=== PATIENT | male | born 1965 | race Caucasian/White ===

== ENCOUNTER 2017-02-27 08:19 | Emergency (ER) | payer BC ==
[2017-02-27] MEDS ORDERED: Sodium Chloride 0.9% 10 ML Syringe FLUSH PRN (08:49)
[2017-02-27] MEDS ORDERED: Sodium Chloride 0.9% 2.5 ML Syringe FLUSH PRN (08:49)
[2017-02-27] MEDS ORDERED: Sodium Chloride 0.9% 1,000 ML IV ONE (08:49)
--- NOTE | 2017-02-27 08:54 | EDM.PDOC ---
ED HPI NEURO - General Chief Complaint: Neurological Problem Stated Complaint: VERTIGO Time Seen by Provider: 02/27/17 08:32 Source of Information: Reports: Patient History Limitations: Reports: No limitations - History of Present Illness INITIAL COMMENTS - FREE TEXT/NARRATIVE: HISTORY AND PHYSICAL: History of present illness: [51-year-old male with a history of tonic vertigo which has been extensively worked of with more than one MRI, carotid ultrasound, echocardiogram, ENT visit , now presents to the emergency department by an episode of dizziness typical for him. She does take meclizine at home with subtotal relief today. Room is spinning and patient does have nausea and sometimes vomits . He is no change in vision speech strength sensation reflexes or cognitive function. Fevers chills sweats or shaking chills. The symptoms are identical to what the patient has been experiencing for years Review of systems: As per history of present illness and below otherwise all systems reviewed and negative. Past medical history: As per history of present illness and as reviewed below otherwise noncontributory. Surgical history: As per history of present illness and as reviewed below otherwise noncontributory. Social history: No reported history of drug or alcohol abuse. Family history: As per history of present illness and as reviewed below otherwise noncontributory. Physical exam: Alert well-appearing patient mildly anxious. Nonfocal neurologic exam with reproducible dizziness with head movement which also precipitates nausea. HEENT: Atraumatic, normocephalic, pupils reactive, negative for conjunctival pallor or scleral icterus, mucous membranes moist, throat clear, neck supple, nontender, trachea midline. Lungs: Clear to auscultation, breath sounds equal bilaterally, chest nontender. Heart: S1S2, regular, negative for clicks, rubs, or JVD. Abdomen: Soft, nondistended, nontender. Negative for masses or hepatosplenomegaly. Negative for costovertebral tenderness. Pelvis: Stable nontender. Genitourinary: Deferred. Rectal: Deferred. Extremities: Atraumatic, negative for cords or calf pain. Neurovascular unremarkable. Neuro: Awake, alert, oriented. Cranial nerves II through XII unremarkable. Cerebellum unremarkable. Motor and sensory unremarkable throughout. Exam nonfocal. Diagnostics: [] Therapeutics: [] Impression: [] Plan: [Signs and symptoms consistent with straightforward presentation the patient's very well known and extensively worked up chronic vertigo. Emergency workup today unremarkable. Imaging of the head was not repeated as these are symptoms chronic and typical for the patient and he recently had a negative MRI. EKG with normal sinus rhythm at 70 normal axis and no STEMI. Chest x-ray chronic changes no acute disease interpreted by me and report reviewed. Labs unremarkable for contributory etiology after IV fluids and Ativan patient states he feels improved and that he could manage as an outpatient. No further workup or treatment indicated at this time. Patient agrees with outpatient followup and strict return precautions given.] Definitive disposition and diagnosis as appropriate pending reevaluation and review of above. - Related Data Allergies/ADRs: Allergies Allergy/AdvReac Type Severity Reaction Status Date / Time metformin Allergy Vomiting Verified 02/27/17 08:40 Home Meds: Home Meds ALPRAZolam [Xanax] 0.25 mg PO TID PRN #10 tablet 07/11/16 [Rx] Albuterol [Proventil HFA] 1 - 2 puff INH ASDIRECTED 07/11/16 [History] Glimepiride [Amaryl] 4 mg PO DAILY 07/11/16 [History] Insulin Glarg,Human.Rec.Analog [LantUS Solostar] 52 units SUBCUT BEDTIME [History] Lisinopril 10 mg PO DAILY 07/11/16 [History] Meclizine [Antivert] 50 mg PO Q6H PRN 07/11/16 [History] atorvaSTATin [Lipitor] 10 mg PO DAILY 07/11/16 [History] Insulin Regular, Human [NovoLIN R] 12 units SQ ASDIRECTED 02/27/17 [History] Ondansetron [Zofran ODT] 8 mg PO Q8H PRN 02/27/17 [History] Past Medical History - Past Health History Medical/Surgical History: Denies Medical/Surgical History Cardiovascular History: Reports: High cholesterol, Hypertension Respiratory History: Reports: COPD Other Respiratory History: a doctor informed him to see a doctor for copd , states was given an albuterol inhaler, but has not used it onlly a couple times in 6 months. Gastrointestinal History: Reports: GERD Neurological History: Reports: Vertigo Psychiatric History: Reports: Anxiety Endocrine/Metabolic History: Reports: Diabetes, type II - Infectious Disease History Infectious Disease History: Reports: Chicken pox - Past Surgical History GI Surgical History: Reports: Colonoscopy Other GI Surgeries/Procedures: polyp removed Other Male Surgeries/Procedures: vasectomy (1995) Other Musculoskeletal Surgeries/Procedures:: left hand surgery Social & Family History - Family History Family Medical History: Noncontributory - Tobacco Use Smoking Status *Q: Never Smoker Years of Tobacco use: 15 Packs/Tins Daily: 0.2 Used Tobacco, but Quit: Yes Month Tobacco Last Used: 1 year Second Hand Smoke Exposure: No - Caffeine Use Caffeine Use: Reports: None - Alcohol Use Days Per Week of Alcohol Use: 1 Number of Drinks Per Day: 0 Total Drinks Per Week: 0 - Recreational Drug Use Recreational Drug Use: No ED ROS GENERAL - Review of Systems Review Of Systems: See Below (History of present illness) ED EXAM, NEURO - Physical Exam Exam: See Below (History of present illness) Course - Vital Signs Last Recorded V/S: Last Vital Signs Temp 36.7 C 02/27/17 10:59 Pulse 95 02/27/17 10:59 Resp 16 02/27/17 10:59 BP 114/78 02/27/17 10:59 Pulse Ox 95 02/27/17 10:59 - Orders/Labs/Meds Orders: Active Orders 24 hr Category Date Time Status EKG Documentation Completion [RC] STAT Care 02/27/17 08:49 Active Peripheral IV Care [RC] . DIRECTED Care 02/27/17 08:49 Active Peripheral IV Insertion Adult [OM.PC] Stat Oth 02/27/17 08:49 Ordered Labs: Laboratory Tests 02/27/17 02/27/17 02/27/17 Range/Units 08:45 08:45 08:45 WBC 7.16 (4.0-11.0) K/uL RBC 4.91 (4.50-5.90) M/uL Hgb 15.7 (13.0-17.0) g/dL Hct 47.0 (38.0-50.0) % MCV 95.7 (80.0-98.0) fL MCH 32.0 (27.0-32.0) pg MCHC 33.4 (31.0-37.0) g/dL RDW Std Deviation 46.4 (28.0-62.0) fl RDW Coeff of Kimani 13 (11.0-15.0) % Plt Count 226 (150-400) K/uL MPV 10.30 (7.40-12.00) fL Neut % (Auto) 59.8 (48.0-80.0) % Lymph % (Auto) 23.6 (16.0-40.0) % [place] % (Auto) 13.3 (0.0-15.0) % Eos % (Auto) 1.5 (0.0-7.0) % Baso % (Auto) 1.8 H (0.0-1.5) % Neut # (Auto) 4.3 (1.4-5.7) K/uL Lymph # (Auto) 1.7 (0.6-2.4) K/uL [place] # (Auto) 1.0 H (0.0-0.8) K/uL Eos # (Auto) 0.1 (0.0-0.7) K/uL Baso # (Auto) 0.1 (0.0-0.1) K/uL Nucleated RBC % 0.0 /100WBC Nucleated RBCs # 0 K/uL Sodium 137 (136-146) mmol/L Potassium 4.2 (3.5-5.1) mmol/L Chloride 106 (98-110) mmol/L Carbon Dioxide 22 (21-31) mmol/L BUN 10 (6.0-23.0) mg/dL Creatinine 0.9 (0.6-1.5) mg/dL Est Cr Clr Drug Dosing 99.29 mL/min Estimated GFR (MDRD) > 60.0 ml/min Glucose 170 H (60-110) mg/dL Calcium 9.0 (8.8-10.8) mg/dL Total Bilirubin 0.5 (0.1-1.5) mg/dL AST 14 (5-40) IU/L ALT 27 (8-54) IU/L Alkaline Phosphatase 75 (40-150) Troponin I < 0.10 (0.0-0.29) NG/ML Total Protein 7.3 (6.0-8.0) g/dL Albumin 3.8 (3.5-5.0) g/dL Globulin 3.5 (2.0-3.5) g/dL Albumin/Globulin Ratio 1.1 L (1.3-2.8) Urine Color Urine Appearance Urine pH (5.0-8.0) Ur Specific [place] (1.001-1.035) Urine Protein (NEGATIVE) mg/dL Urine Glucose (UA) (NEGATIVE) mg/dL Urine Ketones (NEGATIVE) mg/dL Urine Occult Blood (NEGATIVE) Urine Nitrite (NEGATIVE) Urine Bilirubin (NEGATIVE) Urine Urobilinogen (<2.0) EU/dL Ur Leukocyte Esterase (NEGATIVE) Urine RBC (0-2/HPF) Urine WBC (0-5/HPF) Ur Epithelial Cells (NONE-FEW) Urine Bacteria (NEGATIVE) 02/27/17 Range/Units 09:45 WBC (4.0-11.0) K/uL RBC (4.50-5.90) M/uL Hgb (13.0-17.0) g/dL Hct (38.0-50.0) % MCV (80.0-98.0) fL MCH (27.0-32.0) pg MCHC (31.0-37.0) g/dL RDW Std Deviation (28.0-62.0) fl RDW Coeff of Kimani (11.0-15.0) % Plt Count (150-400) K/uL MPV (7.40-12.00) fL Neut % (Auto) (48.0-80.0) % Lymph % (Auto) (16.0-40.0) % [place] % (Auto) (0.0-15.0) % Eos % (Auto) (0.0-7.0) % Baso % (Auto) (0.0-1.5) % Neut # (Auto) (1.4-5.7) K/uL Lymph # (Auto) (0.6-2.4) K/uL [place] # (Auto) (0.0-0.8) K/uL Eos # (Auto) (0.0-0.7) K/uL Baso # (Auto) (0.0-0.1) K/uL Nucleated RBC % /100WBC Nucleated RBCs # K/uL Sodium (136-146) mmol/L Potassium (3.5-5.1) mmol/L Chloride (98-110) mmol/L Carbon Dioxide (21-31) mmol/L BUN (6.0-23.0) mg/dL Creatinine (0.6-1.5) mg/dL Est Cr Clr Drug Dosing mL/min Estimated GFR (MDRD) ml/min Glucose (60-110) mg/dL Calcium (8.8-10.8) mg/dL Total Bilirubin (0.1-1.5) mg/dL AST (5-40) IU/L ALT (8-54) IU/L Alkaline Phosphatase (40-150) Troponin I (0.0-0.29) NG/ML Total Protein (6.0-8.0) g/dL Albumin (3.5-5.0) g/dL Globulin (2.0-3.5) g/dL Albumin/Globulin Ratio (1.3-2.8) Urine Color YELLOW Urine Appearance CLEAR Urine pH 5.5 (5.0-8.0) Ur Specific [place] 1.010 (1.001-1.035) Urine Protein NEGATIVE (NEGATIVE) mg/dL Urine Glucose (UA) NEGATIVE (NEGATIVE) mg/dL Urine Ketones NEGATIVE (NEGATIVE) mg/dL Urine Occult Blood NEGATIVE (NEGATIVE) Urine Nitrite NEGATIVE (NEGATIVE) Urine Bilirubin NEGATIVE (NEGATIVE) Urine Urobilinogen 0.2 (<2.0) EU/dL Ur Leukocyte Esterase NEGATIVE (NEGATIVE) Urine RBC NONE SEEN (0-2/HPF) Urine WBC 0-1 (0-5/HPF) Ur Epithelial Cells RARE (NONE-FEW) Urine Bacteria RARE (NEGATIVE) Meds: Medications Discontinued Medications Generic Name Dose Route Start Last Admin Trade Name Freq PRN Reason Stop Dose Admin Sodium Chloride 1,000 mls @ 999 mls/hr 02/27/17 08:49 02/27/17 09:05 Normal Saline IV 02/27/17 09:49 999 mls/hr .Bolus ONE Administration Lorazepam 1 mg 02/27/17 09:10 02/27/17 09:25 Ativan IVPUSH 02/27/17 09:11 1 mg ONETIME ONE Administration Sodium Chloride 10 ml 02/27/17 08:49 02/27/17 09:07 Saline Flush FLUSH 10 ml ASDIRECTED PRN Administration Keep Vein Open Sodium Chloride 2.5 ml 02/27/17 08:49 02/27/17 09:07 Saline Flush FLUSH 2.5 ml ASDIRECTED PRN Administration Keep Vein Open Sodium Chloride 10 ml 02/27/17 08:49 02/27/17 09:07 Saline Flush FLUSH 10 ml ASDIRECTED PRN Administration Keep Vein Open Sodium Chloride 2.5 ml 02/27/17 08:49 02/27/17 09:08 Saline Flush FLUSH 2.5 ml ASDIRECTED PRN Administration Keep Vein Open Departure - Departure Time of Disposition: 10:27 Disposition: Home, Self-Care 01 Condition: good Clinical Impression: Vertigo, Anxiety Instructions: Vertigo, [id number], Panic Attacks, [id number] Referrals: Saskia Taveras CARDIOGRAPH OPERATOR [Primary Care Provider] - Forms: ED Department Discharge Additional Instructions: We have not found anything abnormal today which would contribute to your attacks of vertigo. It does appear that anxiety isn't contributory component is your DrJuan R has suspected and is treating with your recent medication change from Xanax to Valium. Use this anti-anxiety regimen as prescribed and followup with your DrJuan R tomorrow. Return immediately for new severe or worsening symptoms. - My Orders Last 24 Hours: My Active Orders 02/27/17 08:49 EKG Documentation Completion [RC] STAT Peripheral IV Care [RC] . DIRECTED Peripheral IV Insertion Adult [OM.PC] Stat - Assessment/Plan Last 24 Hours: My Active Orders 02/27/17 08:49 EKG Documentation Completion [RC] STAT Peripheral IV Care [RC] . DIRECTED Peripheral IV Insertion Adult [OM.PC] Stat
[2017-02-27] MEDS: Sodium Chloride 0.9% 10 ML Syringe FLUSH PRN ×2 (09:06→09:07)
[2017-02-27] MEDS: Sodium Chloride 0.9% 2.5 ML Syringe FLUSH PRN ×2 (09:06→09:07)
[2017-02-27] MEDS ORDERED: LORazepam 2 MG/ML MDV IVPUSH ONE (09:10)
[2017-02-27 09:24] LABS: CHLORIDE,CL 106 mmol/L (98-110); SODIUM,NA 137 mmol/L (136-146)
--- NOTE | 2017-02-27 09:58 | CR ---
EXAMINATION: Portable chest radiograph. HISTORY: Chest eval. FINDINGS: The trachea is midline. The cardiomediastinal silhouette is within normal limits. No pulmonary infil trates, effusions or pneumothorax. Osseous structures appear unremarkable. IMPRESSION: No acute cardiopulmonary process.
[2017-02-27 11:00] VITALS: BP 114/78
== END 2017-02-27 11:00 | disposition home or self-care (01) ==
LOC: MW.ED 08:19
DX: R42 Dizziness and giddiness (principal); F41.9 Anxiety disorder, unspecified; I10 Essential (primary) hypertension; E78.00 Pure hypercholesterolemia, unspecified; K21.9 Gastro-esophageal reflux disease without esophagitis; J44.9 Chronic obstructive pulmonary disease, unspecified; E11.9 Type 2 diabetes mellitus without complications; Z79.4 Long term (current) use of insulin; Z79.899 Other long term (current) drug therapy; Z88.8 Allergy status to other drugs, medicaments and biological substances; Z98.52 Vasectomy status; Z98.890 Other specified postprocedural states
CPT/HCPCS: 71010; 80053; 81001; 84484; 85025; 93005; 96361; 96374; 99284; J2060; J7040

== ENCOUNTER 2017-12-30 12:20 | Observation (INO) | payer BC, OTHER ==
[2017-12-30] MEDS ORDERED: Sodium Chloride 0.9% 10 ML Syringe FLUSH PRN (12:29)
[2017-12-30] MEDS ORDERED: Sodium Chloride 0.9% 2.5 ML Syringe FLUSH PRN (12:29)
[2017-12-30] MEDS ORDERED: Aspirin 81 MG Tab.Chew PO ONE (12:29)
--- NOTE | 2017-12-30 12:35 | EDM.PDOC ---
ED HPI GENERAL MEDICAL PROBLEM - General Chief Complaint: Chest Pain Stated Complaint: CHEST PAIN Time Seen by Provider: 12/30/17 12:21 - History of Present Illness INITIAL COMMENTS - FREE TEXT/NARRATIVE: HISTORY AND PHYSICAL: History of present illness: The patient is a 52-year-old male who follows at [facility] with Dr. White and has a history of hypercholesterolemia and insulin requiring diabetes and presents with midsternal chest pain pressure that he describes as a burning sensation that started 8:30 this morning while he was at work. The patient had a normal day yesterday and slept fine and woke up this morning was having a normal morning when this started. He normally does a lot of walking up and down stairs at his job and he does not get chest pain or shortness of breath with that. Today he was doing his normal activities when he had the midsternal chest pain that radiates in a marshall around the lower part of the sternum that does not radiate elsewhere. It was associated with shortness of breath and diaphoresis and it has been coming and going over the last 4 hours. The patient took 2 baby aspirin but nothing stronger than that her pain. At its peak it was a 6/10 and currently in the ER it is a 2/10. The patient has a history of tobacco use for 30 years but quit 3 years ago and currently only chews tobacco. He denies drug use and his dad had a open-heart surgery in his 70s as his only family history. He also says that during one of the episodes of the chest pain he had a shooting numbness in his left leg that lasted for 3 minutes and is now gone and has not recurred. He has no GI history of peptic ulcer disease reflux and no abdominal history. The patient also complains of some dizziness which she has had in the past because of his history of vertigo but it seems to be more prominent with the chest pain. Has not passed out or blackout. Review of systems: As per history of present illness and below otherwise all systems reviewed and negative. Past medical history: As per history of present illness and as reviewed below otherwise noncontributory. Surgical history: As per history of present illness and as reviewed below otherwise noncontributory. Social history: No reported history of drug or alcohol abuse. Family history: As per history of present illness and as reviewed below otherwise noncontributory. Physical exam: Gen.: Well-developed well-nourished overweight male who is nontoxic and ambulatory in the ED. Vital signs have been reviewed by me HEENT: Atraumatic, normocephalic, , negative for conjunctival pallor or scleral icterus, mucous membranes moist, throat clear, neck supple, nontender, trachea midline. Lungs: Clear to auscultation, breath sounds equal bilaterally, chest nontender. Heart: S1S2, regular, negative for clicks, rubs, or JVD. Abdomen: Soft, nondistended, nontender. Negative for masses or hepatosplenomegaly. Normoactive bowel sounds. Pelvis: Stable nontender. Genitourinary: Deferred. Rectal: Deferred. Extremities: Atraumatic, negative for cords or calf pain. Neurovascular unremarkable. No pedal edema or leg asymmetry Neuro: Awake, alert, oriented. Cranial nerves II through XII unremarkable. Cerebellum unremarkable. Motor and sensory unremarkable throughout. Exam nonfocal. Skin: No diaphoresis no overt rashes or lesions are appreciated and turgor is normal Diagnostics: EKG CBC CMP INR troponin amylase lipase and chest x-ray Therapeutics: IV O2 monitor 2 baby aspirin as the patient took 2 baby aspirin prior to arrival , sublingual nitroglycerin, Nitropaste After one sublingual nitroglycerin patient has no chest pain and a half an inch of nitro paste will be applied. We will continue monitoring testing results and plan disposition There is a delay in getting the Nitropaste on the patient and he now says that his chest pain is back up to a 4. We will do a repeat EKG and repeat sublingual nitroglycerin and reevaluate in place the Nitropaste. After another sublingual nitroglycerin and half an inch of nitro paste the patient is pain-free again. The repeat EKG is without significant change and his troponin is negative. I will discuss with him admission for further care of these issues. Case was discussed with Dr. Alvarado our hospitalist at 2 PM. He accepts the patient for observation admission. The patient is also aware of all testing results and is agreeable for admission. Impression: Chest pain rule out ACS Definitive disposition and diagnosis as appropriate pending reevaluation and review of above. - Related Data Allergies Allergy/AdvReac Type Severity Reaction Status Date / Time glimepiride AdvReac Vomiting Verified 12/30/17 12:23 metformin AdvReac Vomiting Verified 12/30/17 12:23 Home Meds: Home Meds Albuterol [Proventil HFA] 1 - 2 puff INH Q4H PRN 07/11/16 [History] Insulin Glarg,Human.Rec.Analog [LantUS Solostar] 52 units SUBCUT BEDTIME [History] Lisinopril 5 mg PO DAILY 07/11/16 [History] Meclizine [Antivert] 50 mg PO Q6H PRN 07/11/16 [History] atorvaSTATin [Lipitor] 10 mg PO DAILY 07/11/16 [History] Insulin Regular, Human [NovoLIN R] 12 units SQ TID 02/27/17 [History] Ondansetron [Zofran ODT] 8 mg PO Q8H PRN 02/27/17 [History] Magnesium Oxide 200 mg PO DAILY 04/16/17 [History] Naproxen 500 mg PO DAILY 04/16/17 [History] hydrOXYzine Pamoate [Hydroxyzine Pamoate] 25 mg PO TID PRN 04/16/17 [History] Past Medical History - Past Health History Medical/Surgical History: Denies Medical/Surgical History HEENT History: Reports: Impaired Vision, Other (See Below) Other HEENT History: eustachian tube dysfunction, R labryinthine reactive loss, wears glasses Cardiovascular History: Reports: High Cholesterol, Hypertension Respiratory History: Reports: COPD Other Respiratory History: a doctor informed him to see a doctor for copd , states was given an albuterol inhaler, but has not used it onlly a couple times in 6 months. 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 Musculoskeletal History: Reports: Other (See Below) Other Musculoskeletal History: L foot pain, joint pain, wrist/hand pain Neurological History: Reports: Migraines, Vertigo, Other (See Below) Other Neuro History: dizziness Psychiatric History: Reports: None, Anxiety Endocrine/Metabolic History: Reports: Diabetes, Type II Hematologic History: Reports: None Immunologic History: Reports: None Oncologic (Cancer) History: Reports: None Dermatologic History: Reports: None - Infectious Disease History Infectious Disease History: Reports: Chicken Pox - Past Surgical History Head Surgeries/Procedures: Reports: None GI Surgical History: Reports: Colonoscopy Other GI Surgeries/Procedures: polyp removed Male Surgical History: Reports: Vasectomy Other Male Surgeries/Procedures: vasectomy (1995) Musculoskeletal Surgical History: Reports: Other (See Below) Other Musculoskeletal Surgeries/Procedures:: left hand surgery Social & Family History - Family History Family Medical History: Noncontributory - Tobacco Use Smoking Status *Q: Former Smoker Years of Tobacco use: 15 Packs/Tins Daily: 0.2 Used Tobacco, but Quit: Yes Month Tobacco Last Used: 2015 Second Hand Smoke Exposure: No - Caffeine Use Caffeine Use: Reports: None - Alcohol Use Days Per Week of Alcohol Use: 1 Number of Drinks Per Day: 0 Total Drinks Per Week: 0 - Recreational Drug Use Recreational Drug Use: No ED ROS GENERAL - Review of Systems Review Of Systems: ROS reveals no pertinent complaints other than HPI. ED EXAM, GENERAL - Physical Exam Exam: See Below (See dictation) Course - Vital Signs Last Recorded V/S: Last Vital Signs Temp 36.9 C 12/30/17 12:28 Pulse 104 H 12/30/17 13:31 Resp 20 12/30/17 12:57 BP 123/93 H 12/30/17 13:35 Pulse Ox 97 12/30/17 12:57 - Orders/Labs/Meds Orders: Active Orders 24 hr Category Date Time Status Patient Status [ADT] Stat ADT 12/30/17 14:02 Ordered Blood Glucose Check, Bedside [RC] ONETIME Care 12/30/17 12:29 Active Cardiac Monitoring [RC] . DIRECTED Care 12/30/17 12:29 Active EKG Documentation Completion [RC] STAT Care 12/30/17 12:29 Active EKG Documentation Completion [RC] STAT Care 12/30/17 13:31 Active Oxygen Therapy, ED [RC] ASDIRECTED Care 12/30/17 12:29 Active Pulse Oximetry [RC] ASDIRECTED Care 12/30/17 12:29 Active Nitroglycerin [Nitrostat] Med 12/30/17 12:29 Active 0.4 mg SL Q5M PRN Sodium Chloride 0.9% [Saline Flush] Med 12/30/17 12:29 Active 10 ml FLUSH ASDIRECTED PRN Sodium Chloride 0.9% [Saline Flush] Med 12/30/17 12:29 Active 2.5 ml FLUSH ASDIRECTED PRN Saline Lock Insert [OM.PC] Stat Oth 12/30/17 12:29 Ordered Medication Orders Nitroglycerin (Nitrostat) 0.4 mg SL Q5M PRN PRN Reason: Chest Pain Last Admin: 12/30/17 13:35 Dose: 0.4 mg Admin: 12/30/17 12:52 Dose: 0.4 mg Sodium Chloride (Saline Flush) 10 ml FLUSH ASDIRECTED PRN PRN Reason: Keep Vein Open Sodium Chloride (Saline Flush) 2.5 ml FLUSH ASDIRECTED PRN PRN Reason: Keep Vein Open Labs: Laboratory Tests 12/30/17 12/30/17 12/30/17 Range/Units 12:48 12:48 12:48 WBC 10.46 (4.0-11.0) K/uL RBC 4.90 (4.50-5.90) M/uL Hgb 16.0 (13.0-17.0) g/dL Hct 46.3 (38.0-50.0) % MCV 94.5 (80.0-98.0) fL MCH 32.7 H (27.0-32.0) pg MCHC 34.6 (31.0-37.0) g/dL RDW Std Deviation 44.7 (28.0-62.0) fl RDW Coeff of Kimani 13 (11.0-15.0) % Plt Count 270 (150-400) K/uL MPV 10.40 (7.40-12.00) fL Neut % (Auto) 63.1 (48.0-80.0) % Lymph % (Auto) 27.8 (16.0-40.0) % Dade % (Auto) 7.6 (0.0-15.0) % Eos % (Auto) 0.8 (0.0-7.0) % Baso % (Auto) 0.7 (0.0-1.5) % Neut # (Auto) 6.6 H (1.4-5.7) K/uL Lymph # (Auto) 2.9 H (0.6-2.4) K/uL Dade # (Auto) 0.8 (0.0-0.8) K/uL Eos # (Auto) 0.1 (0.0-0.7) K/uL Baso # (Auto) 0.1 (0.0-0.1) K/uL Nucleated RBC % 0.0 /100WBC Nucleated RBCs # 0 K/uL INR 0.99 Sodium 136 (136-146) mmol/L Potassium 4.1 (3.5-5.1) mmol/L Chloride 103 (98-110) mmol/L Carbon Dioxide 22 (21-31) mmol/L BUN 11 (6.0-23.0) mg/dL Creatinine 0.9 (0.6-1.5) mg/dL Est Cr Clr Drug Dosing 98.19 mL/min Estimated GFR (MDRD) > 60.0 ml/min Glucose 254 H (60-110) mg/dL POC Glucose (60-110) mg/dL Calcium 9.7 (8.8-10.8) mg/dL Total Bilirubin 0.4 (0.1-1.5) mg/dL AST 19 (5-40) IU/L ALT 33 (8-54) IU/L Alkaline Phosphatase 87 (40-150) Troponin I < 0.10 (0.0-0.29) NG/ML Total Protein 7.7 (6.0-8.0) g/dL Albumin 4.1 (3.5-5.0) g/dL Globulin 3.6 H (2.0-3.5) g/dL Albumin/Globulin Ratio 1.1 L (1.3-2.8) Amylase 29 (10-90) U/L Lipase 18 (7-80) U/L 12/30/17 Range/Units 12:49 WBC (4.0-11.0) K/uL RBC (4.50-5.90) M/uL Hgb (13.0-17.0) g/dL Hct (38.0-50.0) % MCV (80.0-98.0) fL MCH (27.0-32.0) pg MCHC (31.0-37.0) g/dL RDW Std Deviation (28.0-62.0) fl RDW Coeff of Kimani (11.0-15.0) % Plt Count (150-400) K/uL MPV (7.40-12.00) fL Neut % (Auto) (48.0-80.0) % Lymph % (Auto) (16.0-40.0) % [place]ade % (Auto) (0.0-15.0) % Eos % (Auto) (0.0-7.0) % Baso % (Auto) (0.0-1.5) % Neut # (Auto) (1.4-5.7) K/uL Lymph # (Auto) (0.6-2.4) K/uL Dade # (Auto) (0.0-0.8) K/uL Eos # (Auto) (0.0-0.7) K/uL Baso # (Auto) (0.0-0.1) K/uL Nucleated RBC % /100WBC Nucleated RBCs # K/uL INR Sodium (136-146) mmol/L Potassium (3.5-5.1) mmol/L Chloride (98-110) mmol/L Carbon Dioxide (21-31) mmol/L BUN (6.0-23.0) mg/dL Creatinine (0.6-1.5) mg/dL Est Cr Clr Drug Dosing mL/min Estimated GFR (MDRD) ml/min Glucose (60-110) mg/dL POC Glucose 234 H (60-110) mg/dL Calcium (8.8-10.8) mg/dL Total Bilirubin (0.1-1.5) mg/dL AST (5-40) IU/L ALT (8-54) IU/L Alkaline Phosphatase (40-150) Troponin I (0.0-0.29) NG/ML Total Protein (6.0-8.0) g/dL Albumin (3.5-5.0) g/dL Globulin (2.0-3.5) g/dL Albumin/Globulin Ratio (1.3-2.8) Amylase (10-90) U/L Lipase (7-80) U/L Meds: Medications Generic Name Dose Route Start Last Admin Trade Name Freq PRN Reason Stop Dose Admin Nitroglycerin 0.4 mg 12/30/17 12:29 12/30/17 13:35 Nitrostat SL 0.4 mg Q5M PRN Administration Chest Pain Sodium Chloride 10 ml 12/30/17 12:29 Saline Flush FLUSH ASDIRECTED PRN Keep Vein Open Sodium Chloride 2.5 ml 12/30/17 12:29 Saline Flush FLUSH ASDIRECTED PRN Keep Vein Open Discontinued Medications Generic Name Dose Route Start Last Admin Trade Name Pedro PRN Reason Stop Dose Admin Aspirin 162 mg 12/30/17 12:29 12/30/17 12:56 Aspirin PO 12/30/17 12:30 162 mg ONETIME ONE Administration Nitroglycerin 0.5 gm 12/30/17 13:09 12/30/17 13:41 Nitro-Bid 2% TOP 12/30/17 13:10 0.5 gm ONETIME ONE Administration Departure - Departure Time of Disposition: 14:04 Disposition: Refer to Observation Condition: Good Clinical Impression: Chest pain Qualifiers: Chest pain type: unspecified Qualified Code(s): R07.9 - Chest pain, unspecified - Discharge Information Referrals: PCP,None [Primary Care Provider] - Forms: ED Department Discharge - My Orders Last 24 Hours: My Active Orders 12/30/17 12:29 Blood Glucose Check, Bedside [RC] ONETIME Cardiac Monitoring [RC] . DIRECTED EKG Documentation Completion [RC] STAT Oxygen Therapy, ED [RC] ASDIRECTED Pulse Oximetry [RC] ASDIRECTED Nitroglycerin [Nitrostat] 0.4 mg SL Q5M PRN Sodium Chloride 0.9% [Saline Flush] 10 ml FLUSH ASDIRECTED PRN Sodium Chloride 0.9% [Saline Flush] 2.5 ml FLUSH ASDIRECTED PRN Saline Lock Insert [OM.PC] Stat 12/30/17 13:31 EKG Documentation Completion [RC] STAT 12/30/17 14:02 Patient Status [ADT] Stat - Assessment/Plan Last 24 Hours: My Active Orders 12/30/17 12:29 Blood Glucose Check, Bedside [RC] ONETIME Cardiac Monitoring [RC] . DIRECTED EKG Documentation Completion [RC] STAT Oxygen Therapy, ED [RC] ASDIRECTED Pulse Oximetry [RC] ASDIRECTED Nitroglycerin [Nitrostat] 0.4 mg SL Q5M PRN Sodium Chloride 0.9% [Saline Flush] 10 ml FLUSH ASDIRECTED PRN Sodium Chloride 0.9% [Saline Flush] 2.5 ml FLUSH ASDIRECTED PRN Saline Lock Insert [OM.PC] Stat 12/30/17 13:31 EKG Documentation Completion [RC] STAT 12/30/17 14:02 Patient Status [ADT] Stat
[2017-12-30] MEDS: Nitroglycerin 0.4 MG Tab.SL SL PRN ×2 (12:52→13:35)
[2017-12-30] MEDS ORDERED: Nitroglycerin 2% Oint 1 GM UD Packet TOP ONE (13:09)
[2017-12-30 13:35] LABS: CHLORIDE,CL 103 mmol/L (98-110); SODIUM,NA 136 mmol/L (136-146)
--- NOTE | 2017-12-30 13:38 | CR ---
EXAMINATION: Portable chest radiograph. HISTORY: Shortness of breath. FINDINGS: The trachea is midline. The cardiomediastinal silhouette is within normal limits. No pulmonary infilt rates, effusions or pneumothorax. Osseous structures appear unremarkable. IMPRESSION: No acute cardiopulmonary process.
[2017-12-30] MEDS ORDERED: Meclizine 25 MG Tab PO PRN (15:19)
--- NOTE | 2017-12-30 15:51 | PCM.HP ---
H&P History of Present Illness - General Date of Service: 12/30/17 Admit Problem/Dx: Admission Diagnosis/Problem Admission Diagnosis/Problem Chest pain Source of Information: Patient - History of Present Illness Initial Comments - Free Text/Narative: 52yoM with a past pmhx of T2DM, HLD, Migraines, Vertigo, Obesity presented to the ER with a CC of chest pain since 830AM today. Patient stated that he was in his truck this morning when he began to feel chest pain located in the left side of his chest, radiating slightly across his lower chest wall but not into the back or arm. He stated that this occurred and he took 2 baby aspirin shortly thereafter. He stated that the pain would occur in waves lasting 3-5 minutes, would be chest pain free for 20 minutes or so and reoccur again. Denies any change in pain with breathing, numbness tingling, or shortness of breath. No syncope or lightheadedness. He tells me that he went to the emergency department because he was concerned he was having a heart attack. While in the ED, patient states that he had a brief episode of vertigo and nausea as well. He denies vomiting. At the time of evaluation, patient was chest pain free. Complaining of a mild headache attributed to the nitro. ED Course: EKG unremarkable CXR unremarkable CBC unremarkable CMP - Glucose 254, Troponin x1 negative Nitro x2 - Related Data Allergies/Adverse Reactions: Allergies Allergy/AdvReac Type Severity Reaction Status Date / Time glimepiride AdvReac Vomiting Verified 12/30/17 12:23 metformin AdvReac Vomiting Verified 12/30/17 12:23 Home Medications: Home Meds Albuterol [Proventil HFA] 1 - 2 puff INH Q4H PRN 07/11/16 [History] Insulin Glarg,Human.Rec.Analog [LantUS Solostar] 52 units SUBCUT BEDTIME [History] Lisinopril 5 mg PO DAILY 07/11/16 [History] Meclizine [Antivert] 50 mg PO Q6H PRN 07/11/16 [History] atorvaSTATin [Lipitor] 10 mg PO DAILY 07/11/16 [History] Insulin Regular, Human [NovoLIN R] 12 units SQ TID 02/27/17 [History] Ondansetron [Zofran ODT] 8 mg PO Q8H PRN 02/27/17 [History] Magnesium Oxide 200 mg PO DAILY 04/16/17 [History] Naproxen 500 mg PO DAILY 04/16/17 [History] hydrOXYzine Pamoate [Hydroxyzine Pamoate] 25 mg PO TID PRN 04/16/17 [History] Past Medical History - Past Health History Medical/Surgical History: Denies Medical/Surgical History HEENT History: Reports: Impaired Vision, Other (See Below) Other HEENT History: eustachian tube dysfunction, R labryinthine reactive loss, wears glasses Cardiovascular History: Reports: High Cholesterol, Hypertension Respiratory History: Reports: COPD Other Respiratory History: a doctor informed him to see a doctor for copd , states was given an albuterol inhaler, but has not used it onlly a couple times in 6 months. 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 Musculoskeletal History: Reports: Other (See Below) Other Musculoskeletal History: L foot pain, joint pain, wrist/hand pain Neurological History: Reports: Migraines, Vertigo, Other (See Below) Other Neuro History: dizziness Psychiatric History: Reports: None, Anxiety Endocrine/Metabolic History: Reports: Diabetes, Type II Hematologic History: Reports: None Immunologic History: Reports: None Oncologic (Cancer) History: Reports: None Dermatologic History: Reports: None - Infectious Disease History Infectious Disease History: Reports: Chicken Pox - Past Surgical History Head Surgeries/Procedures: Reports: None GI Surgical History: Reports: Colonoscopy Other GI Surgeries/Procedures: polyp removed Male Surgical History: Reports: Vasectomy Other Male Surgeries/Procedures: vasectomy (1995) Musculoskeletal Surgical History: Reports: Other (See Below) Other Musculoskeletal Surgeries/Procedures:: left hand surgery Social & Family History - Family History Family Medical History: Noncontributory - Tobacco Use Smoking Status *Q: Former Smoker Years of Tobacco use: 15 Packs/Tins Daily: 0.2 Used Tobacco, but Quit: Yes Month Tobacco Last Used: 2015 Second Hand Smoke Exposure: No - Caffeine Use Caffeine Use: Reports: None - Alcohol Use Days Per Week of Alcohol Use: 1 Number of Drinks Per Day: 0 Total Drinks Per Week: 0 - Recreational Drug Use Recreational Drug Use: No H&P Review of Systems - Review of Systems: Review Of Systems: See Below General: Reports: Other (see HPI) HEENT: Reports: Headaches, Vertigo. Denies: Sinus Congestion, Sore Throat Pulmonary: Reports: No Symptoms Cardiovascular: Reports: Chest Pain, Edema, Blood Pressure Problem. Denies: Palpitations, Dyspnea on Exertion, Orthopnea, PND, Lightheadedness, Syncope Gastrointestinal: Reports: No Symptoms Genitourinary: Reports: No Symptoms Musculoskeletal: Reports: No Symptoms Skin: Reports: No Symptoms Psychiatric: Reports: No Symptoms Neurological: Reports: No Symptoms Hematologic/Lymphatic: Reports: No Symptoms Immunologic: Reports: No Symptoms Exam - Exam Exam: See Below - Vital Signs Vital Signs: Last Vital Signs Temp 36.9 C 12/30/17 12:28 Pulse 104 H 12/30/17 13:31 Resp 20 12/30/17 12:57 BP 123/93 H 12/30/17 13:35 Pulse Ox 97 12/30/17 12:57 Weight: 115.7 kg - Exam General: Alert, Oriented, Cooperative HEENT: Conjunctiva Clear, EACs Clear, EOMI, Hearing Intact, Mucosa Moist & [place] , Posterior Pharynx Clear, TMs Clear Neck: Supple, Trachea Midline, +2 Carotid Pulse wo Bruit Lungs: Clear to Auscultation, Normal Respiratory Effort Cardiovascular: Regular Rate, Regular Rhythm, Normal S1, Normal S2 GI/Abdominal Exam: Normal Bowel Sounds, Soft, Non-Tender, No Organomegaly, No Distention, No Abnormal Bruit, Pelvis Stable Back Exam: Normal Inspection, Full Range of Motion. No: CVA Tenderness (L), CVA Tenderness (R) Extremities: Normal Inspection, Normal Range of Motion, Non-Tender, Pedal Edema (trace) Peripheral Pulses: 1+: Posterior Tibial (L), Posterior Tibial (R) Skin: Warm Neurological: Cranial Nerves Intact, Reflexes Equal Bilateral Neuro Extensive - Mental Status: Alert, Oriented x3, Normal Mood/Affect, Normal Cognition, Memory Intact Neuro Extensive - Motor, Sensory, Reflexes: CN II-XII Intact, Normal Gait, Normal Reflexes Psychiatric: Alert, Normal Affect, Normal Mood - Patient Data Result Diagrams: 12/30/17 12:48 12/30/17 12:48 *Q Meaningful Use (ADM) - VTE *Q VTE Criteria *Q: - Stroke *Q Stroke Criteria *Q: - AMI *Q AMI Criteria *Q: Problem List Initiated/Reviewed/Updated: Yes Orders Last 24hrs: Active Orders 24 hr Category Date Time Status Accu Check [Blood Glucose Check, Bedside] [RC] TIDMEALS Care 12/30/17 15:18 Active Antiembolic Devices [RC] PER UNIT ROUTINE Care 12/30/17 15:16 Active Oxygen Therapy [RC] PRN Care 12/30/17 15:14 Active Telemetry Monitoring [Cardiac Monitoring] [RC] . Care 12/30/17 14:38 Active DIRECTED Up ad Georgette [RC] ASDIRECTED Care 12/30/17 15:14 Active VTE/DVT Education [RC] PER UNIT ROUTINE Care 12/30/17 15:14 Active Vital Signs [RC] Q4H Care 12/30/17 15:14 Active Regular Diet [DIET] Diet 12/30/17 Dinner Active BASIC METABOLIC PANEL,BMP [CHEM] AM Lab 12/31/17 05:11 Ordered CBC W/O DIFF,HEMOGRAM [HEME] AM Lab 12/31/17 05:11 Ordered TROPONIN I [CHEM] Q6H Lab 12/30/17 15:14 Ordered TROPONIN I [CHEM] Q6H Lab 12/30/17 21:14 Ordered Enoxaparin [Lovenox] Med 12/30/17 15:15 Active 40 mg SUBCUT DAILY Insulin Aspart [NovoLOG] Med 12/30/17 17:00 Active See Protocol SUBCUT TIDAC Lisinopril [Prinivil] Med 12/31/17 09:00 Active 5 mg PO DAILY Magnesium Oxide Med 12/31/17 09:00 Active 200 mg PO DAILY Meclizine [Antivert] Med 12/30/17 15:19 Active 50 mg PO Q6H PRN atorvaSTATin [Lipitor] Med 12/31/17 09:00 Active 10 mg PO DAILY Sequential Compression Device [OM.PC] Per Unit Routine Oth 12/30/17 15:15 Ordered Resuscitation Status Routine Resus Stat 12/30/17 15:14 Ordered Medication Orders Atorvastatin Calcium (Lipitor) 10 mg PO DAILY CHRISTINE Enoxaparin Sodium (Lovenox) 40 mg SUBCUT DAILY CHRISTINE Insulin Aspart (Novolog) 0 unit SUBCUT TIDAC CHRISTINE PRN Reason: Protocol Lisinopril (Prinivil) 5 mg PO DAILY CHRISTINE Magnesium Oxide (Magnesium Oxide) 200 mg PO DAILY CHRISTINE Meclizine HCl (Antivert) 50 mg PO Q6H PRN PRN Reason: Dizziness Nitroglycerin (Nitrostat) 0.4 mg SL Q5M PRN PRN Reason: Chest Pain Last Admin: 12/30/17 13:35 Dose: 0.4 mg Admin: 12/30/17 12:52 Dose: 0.4 mg Sodium Chloride (Saline Flush) 10 ml FLUSH ASDIRECTED PRN PRN Reason: Keep Vein Open Sodium Chloride (Saline Flush) 2.5 ml FLUSH ASDIRECTED PRN PRN Reason: Keep Vein Open Assessment/Plan Comment:: Assessment: #1. Chest pain ACS rule out #2. Hyperglycemia #3. Pedal edema #4. Elevated BP readings #4. History of T2DM, HLD, Migraines Plan: #1. Admit to floor for observation. #2. Cardiac telemetry. Vital signs per floor. Lovenox+SCD for DVT prophylaxis #3. Troponin q6h x2 for a total of 3 values #4. Insulin sliding scale #5. Restart home meds #6. In regards to his pedal edema, he states he has had this for the past 3-4 years. Echocardiogram obtained in 2016, I will try to get a hold of this record. Consider an echocardiogram as an outpatient. #7. Patient presented with mildly elevated blood pressure to the ED. This will need to be re-evaluated as an outpatient. #8. Anticipate DC tomorrow.
[2017-12-30] MEDS: Enoxaparin 40 MG/0.4 ML Syringe SUBCUT SCH (15:59)
[2017-12-30] MEDS: Insulin Aspart 100 Units/ML 3 ML Pen SUBCUT SCH (16:37)
[2017-12-30] MEDS ORDERED: Insulin Glargine,Human Rec. Analog 100 Units/ML 3 ML Pen SUBCUT SCH (21:00)
[2017-12-30] MEDS ORDERED: [UNRECOGNIZED DRUG - OTHER] SUBCUT SCH (21:00)
[2017-12-31 05:46] LABS: CHLORIDE,CL 106 mmol/L (98-110); SODIUM,NA 138 mmol/L (136-146)
[2017-12-31 08:51] VITALS: BP 134/89
[2017-12-31] MEDS: Enoxaparin 40 MG/0.4 ML Syringe SUBCUT SCH (08:53)
[2017-12-31] MEDS: Insulin Aspart 100 Units/ML 3 ML Pen SUBCUT SCH (09:00)
[2017-12-31] MEDS ORDERED: Lisinopril 5 MG Tab PO SCH (09:00)
[2017-12-31] MEDS ORDERED: Magnesium Oxide 400 MG Tab PO SCH (09:00)
[2017-12-31] MEDS ORDERED: atorvaSTATin 10 MG Tab PO SCH (09:00)
--- NOTE | 2017-12-31 09:08 | PCM.DCSUM1 ---
<Severo Flores - Last Filed: 12/31/17 09:03> Discharge Summary - Hospital Course Free Text/Narrative:: Admission Date: 12/30/2017 Discharge Date: 12/31/2017 Admission Dx: #1. Chest pain ACS rule out #2. Hyperglycemia #3. Pedal edema #4. Elevated BP readings #4. History of T2DM, HLD, Migraines Discharge Dx: #1. ACS ruled out - chest pain free #2. History of T2DM, HLD, Migraines Hospital course: 52M with above mentioned history that presented to the ER on 12/30/2017 morning complaining of left sided-nonradiating chest pain of a few hours duration. Patient took 2 baby aspirin prior to arrival. He was then given nitro x2 in the ED which the pain responded to. He was then admitted for ACS rule out. Troponin x3 was negative. Telemetry was negative throughout the stay. The following morning, patient stated that his pain was gone and did not reoccur since prior to arrival. On initial evaluation, there were concerns of pedal edema bilaterally. On recheck prior to discharge, there was none appreciated. This may have just been secondary to orthostasis. He denies orthopnea. He had an echo in 2016 which was unremarkable. I would like to schedule him for an outpatient stress test that he can f/u on with PCP. Otherwise, no medication changes were made. Pt compliance with diabetes management was stressed. - Discharge Data Discharge Date: 12/31/17 Discharge Disposition: Home, Self-Care 01 Condition: Good - Patient Instructions Diet: Diabetic Diet Activity: As Tolerated Notify Provider of: Fever, Increased Pain, Swelling and Redness, Nausea and/or Vomiting - Discharge Plan Home Medications: Home Meds Albuterol [Proventil HFA] 2 puff INH Q4H PRN 07/11/16 [History] Lisinopril 5 mg PO DAILY 07/11/16 [History] Meclizine [Antivert] 50 mg PO Q6H PRN 07/11/16 [History] atorvaSTATin [Lipitor] 10 mg PO DAILY 07/11/16 [History] Ondansetron [Zofran ODT] 4 mg PO TID PRN 02/27/17 [History] Magnesium Oxide 200 mg PO DAILY 04/16/17 [History] Naproxen 500 mg PO Q12HR PRN 04/16/17 [History] Gabapentin [Neurontin] 300 mg PO BEDTIME 12/30/17 [History] Insulin Aspart [Novolog Flexpen] 15 units SUBCUT TIDAC 12/30/17 [History] Insulin Aspart [Novolog Flexpen] 20 - 25 units SQ TIDAC 12/30/17 [History] Insulin Degludec [Tresiba Flextouch U-200] 66 unit SQ BEDTIME 12/30/17 [History] Patient Handouts: Chest Wall Pain, [id number] Referrals: Mario White MD [Physician] - 01/08/18 9:00 am (Please arrive at your appointment fifteen minutes early to get checked in.) - Discharge Summary/Plan Comment Discharge Summary/Plan Comment: Admission Date: 12/30/2017 Discharge Date: 12/31/2017 Admission Dx: #1. Chest pain ACS rule out #2. Hyperglycemia #3. Pedal edema #4. Elevated BP readings #4. History of T2DM, HLD, Migraines Discharge Dx: #1. ACS ruled out - chest pain free #2. History of T2DM, HLD, Migraines Hospital course: 52M with above mentioned history that presented to the ER on 12/30/2017 morning complaining of left sided-nonradiating chest pain of a few hours duration. Patient took 2 baby aspirin prior to arrival. He was then given nitro x2 in the ED which the pain responded to. He was then admitted for ACS rule out. Troponin x3 was negative. Telemetry was negative throughout the stay. The following morning, patient stated that his pain was gone and did not reoccur since prior to arrival. On initial evaluation, there were concerns of pedal edema bilaterally. On recheck prior to discharge, there was none appreciated. This may have just been secondary to orthostasis. He denies orthopnea. He had an echo in 2016 which was unremarkable. I would like to schedule him for an outpatient stress test that he can f/u on with PCP. Otherwise, no medication changes were made. Pt compliance with diabetes management was stressed. - Patient Data Vitals - Most Recent: Last Vital Signs Temp 35.8 C 12/31/17 08:50 Pulse 64 12/31/17 08:50 Resp 18 12/31/17 08:50 BP 134/89 12/31/17 08:52 Pulse Ox 94 L 02/06/18 04:00 Weight - Most Recent: 115.7 kg I&O - Last 24 hours: Intake & Output 12/30/17 12/31/17 12/31/17 22:59 06:59 14:59 Intake Total 0 1370 Output Total 0 830 Balance 0 540 Lab Results - Last 24 hrs: Laboratory Results - last 24 hr 12/30/17 12/30/17 12/30/17 Range/Units 16:26 18:45 21:53 WBC (4.0-11.0) K/uL RBC (4.50-5.90) M/uL Hgb (13.0-17.0) g/dL Hct (38.0-50.0) % MCV (80.0-98.0) fL MCH (27.0-32.0) pg MCHC (31.0-37.0) g/dL RDW Std Deviation (28.0-62.0) fl RDW Coeff of Kimani (11.0-15.0) % Plt Count (150-400) K/uL MPV (7.40-12.00) fL Nucleated RBC % /100WBC Nucleated RBCs # K/uL Sodium (136-146) mmol/L Potassium (3.5-5.1) mmol/L Chloride (98-110) mmol/L Carbon Dioxide (21-31) mmol/L BUN (6.0-23.0) mg/dL Creatinine (0.6-1.5) mg/dL Est Cr Clr Drug Dosing mL/min Estimated GFR (MDRD) ml/min Glucose (60-110) mg/dL POC Glucose 144 H 188 H (60-110) mg/dL Calcium (8.8-10.8) mg/dL Troponin I < 0.10 (0.0-0.29) NG/ML 12/31/17 12/31/17 12/31/17 Range/Units 00:42 05:08 05:08 WBC 6.37 (4.0-11.0) K/uL RBC 4.79 (4.50-5.90) M/uL Hgb 15.3 (13.0-17.0) g/dL Hct 45.6 (38.0-50.0) % MCV 95.2 (80.0-98.0) fL MCH 31.9 (27.0-32.0) pg MCHC 33.6 (31.0-37.0) g/dL RDW Std Deviation 45.0 (28.0-62.0) fl RDW Coeff of Kimani 13 (11.0-15.0) % Plt Count 253 (150-400) K/uL MPV 9.90 (7.40-12.00) fL Nucleated RBC % 0.0 /100WBC Nucleated RBCs # 0 K/uL Sodium 138 (136-146) mmol/L Potassium 4.0 (3.5-5.1) mmol/L Chloride 106 (98-110) mmol/L Carbon Dioxide 25 (21-31) mmol/L BUN 11 (6.0-23.0) mg/dL Creatinine 0.9 (0.6-1.5) mg/dL Est Cr Clr Drug Dosing 98.19 mL/min Estimated GFR (MDRD) > 60.0 ml/min Glucose 196 H (60-110) mg/dL POC Glucose (60-110) mg/dL Calcium 9.1 (8.8-10.8) mg/dL Troponin I < 0.10 (0.0-0.29) NG/ML 12/31/17 Range/Units 06:11 WBC (4.0-11.0) K/uL RBC (4.50-5.90) M/uL Hgb (13.0-17.0) g/dL Hct (38.0-50.0) % MCV (80.0-98.0) fL MCH (27.0-32.0) pg MCHC (31.0-37.0) g/dL RDW Std Deviation (28.0-62.0) fl RDW Coeff of Kimani (11.0-15.0) % Plt Count (150-400) K/uL MPV (7.40-12.00) fL Nucleated RBC % /100WBC Nucleated RBCs # K/uL Sodium (136-146) mmol/L Potassium (3.5-5.1) mmol/L Chloride (98-110) mmol/L Carbon Dioxide (21-31) mmol/L BUN (6.0-23.0) mg/dL Creatinine (0.6-1.5) mg/dL Est Cr Clr Drug Dosing mL/min Estimated GFR (MDRD) ml/min Glucose (60-110) mg/dL POC Glucose 173 H (60-110) mg/dL Calcium (8.8-10.8) mg/dL Troponin I (0.0-0.29) NG/ML Med Orders - Current: Current Medications Atorvastatin Calcium (Lipitor) 10 mg PO DAILY [facility] Last Admin: 12/31/17 08:52 Dose: 10 mg Enoxaparin Sodium (Lovenox) 40 mg SUBCUT DAILY [facility] Last Admin: 12/31/17 08:53 Dose: 40 mg Insulin Aspart (Novolog) 0 unit SUBCUT TIDAC [facility] PRN Reason: Protocol Last Admin: 12/30/17 16:37 Dose: Not Given Insulin Glargine (Lantus Solostar) 66 units SUBCUT BEDTIME [facility] Last Admin: 12/30/17 21:56 Dose: 66 units Lisinopril (Prinivil) 5 mg PO DAILY [facility] Last Admin: 12/31/17 08:52 Dose: 5 mg Magnesium Oxide (Magnesium Oxide) 200 mg PO DAILY [facility] Last Admin: 12/31/17 08:52 Dose: 200 mg Meclizine HCl (Antivert) 50 mg PO Q6H PRN PRN Reason: Dizziness Nitroglycerin (Nitrostat) 0.4 mg SL Q5M PRN PRN Reason: Chest Pain Last Admin: 12/30/17 13:35 Dose: 0.4 mg Sodium Chloride (Saline Flush) 10 ml FLUSH ASDIRECTED PRN PRN Reason: Keep Vein Open Sodium Chloride (Saline Flush) 2.5 ml FLUSH ASDIRECTED PRN PRN Reason: Keep Vein Open Discontinued Medications Aspirin (Aspirin) 162 mg PO ONETIME ONE Stop: 12/30/17 12:30 Last Admin: 12/30/17 12:56 Dose: 162 mg Nitroglycerin (Nitro-Bid 2%) 0.5 gm TOP ONETIME ONE Stop: 12/30/17 13:10 Last Admin: 12/30/17 13:41 Dose: 0.5 gm Tresiba Insulin (Degludec) 1 each SUBCUT BEDTIME [facility] Last Admin: 12/30/17 20:28 Dose: Not Given *Q Meaningful Use (DIS) - VTE *Q VTE Criteria *Q: - Stroke *Q Stroke Criteria *Q: - AMI *Q AMI Criteria *Q: <Bryan Alvarado J - Last Filed: 12/31/17 17:58> - Patient Data Vitals - Most Recent: Last Vital Signs Temp 35.8 C 12/31/17 08:50 Pulse 64 12/31/17 08:50 Resp 18 12/31/17 08:50 BP 134/89 12/31/17 08:52 Pulse Ox 95 12/31/17 08:50 I&O - Last 24 hours: Intake & Output 12/31/17 12/31/17 12/31/17 06:59 14:59 22:59 Intake Total 1370 250 Output Total 830 Balance 540 250 Lab Results - Last 24 hrs: Laboratory Results - last 24 hr 12/30/17 12/30/17 12/30/17 Range/Units 16:26 18:45 21:53 WBC (4.0-11.0) K/uL RBC (4.50-5.90) M/uL Hgb (13.0-17.0) g/dL Hct (38.0-50.0) % MCV (80.0-98.0) fL MCH (27.0-32.0) pg MCHC (31.0-37.0) g/dL RDW Std Deviation (28.0-62.0) fl RDW Coeff of Kimani (11.0-15.0) % Plt Count (150-400) K/uL MPV (7.40-12.00) fL Nucleated RBC % /100WBC Nucleated RBCs # K/uL Sodium (136-146) mmol/L Potassium (3.5-5.1) mmol/L Chloride (98-110) mmol/L Carbon Dioxide (21-31) mmol/L BUN (6.0-23.0) mg/dL Creatinine (0.6-1.5) mg/dL Est Cr Clr Drug Dosing mL/min Estimated GFR (MDRD) ml/min Glucose (60-110) mg/dL POC Glucose 144 H 188 H (60-110) mg/dL Calcium (8.8-10.8) mg/dL Troponin I < 0.10 (0.0-0.29) NG/ML 12/31/17 12/31/17 12/31/17 Range/Units 00:42 05:08 05:08 WBC 6.37 (4.0-11.0) K/uL RBC 4.79 (4.50-5.90) M/uL Hgb 15.3 (13.0-17.0) g/dL Hct 45.6 (38.0-50.0) % MCV 95.2 (80.0-98.0) fL MCH 31.9 (27.0-32.0) pg MCHC 33.6 (31.0-37.0) g/dL RDW Std Deviation 45.0 (28.0-62.0) fl RDW Coeff of Kimani 13 (11.0-15.0) % Plt Count 253 (150-400) K/uL MPV 9.90 (7.40-12.00) fL Nucleated RBC % 0.0 /100WBC Nucleated RBCs # 0 K/uL Sodium 138 (136-146) mmol/L Potassium 4.0 (3.5-5.1) mmol/L Chloride 106 (98-110) mmol/L Carbon Dioxide 25 (21-31) mmol/L BUN 11 (6.0-23.0) mg/dL Creatinine 0.9 (0.6-1.5) mg/dL Est Cr Clr Drug Dosing 98.19 mL/min Estimated GFR (MDRD) > 60.0 ml/min Glucose 196 H (60-110) mg/dL POC Glucose (60-110) mg/dL Calcium 9.1 (8.8-10.8) mg/dL Troponin I < 0.10 (0.0-0.29) NG/ML 12/31/17 Range/Units 06:11 WBC (4.0-11.0) K/uL RBC (4.50-5.90) M/uL Hgb (13.0-17.0) g/dL Hct (38.0-50.0) % MCV (80.0-98.0) fL MCH (27.0-32.0) pg MCHC (31.0-37.0) g/dL RDW Std Deviation (28.0-62.0) fl RDW Coeff of Kimani (11.0-15.0) % Plt Count (150-400) K/uL MPV (7.40-12.00) fL Nucleated RBC % /100WBC Nucleated RBCs # K/uL Sodium (136-146) mmol/L Potassium (3.5-5.1) mmol/L Chloride (98-110) mmol/L Carbon Dioxide (21-31) mmol/L BUN (6.0-23.0) mg/dL Creatinine (0.6-1.5) mg/dL Est Cr Clr Drug Dosing mL/min Estimated GFR (MDRD) ml/min Glucose (60-110) mg/dL POC Glucose 173 H (60-110) mg/dL Calcium (8.8-10.8) mg/dL Troponin I (0.0-0.29) NG/ML Med Orders - Current: Current Medications Discontinued Medications Aspirin (Aspirin) 162 mg PO ONETIME ONE Stop: 12/30/17 12:30 Last Admin: 12/30/17 12:56 Dose: 162 mg Atorvastatin Calcium (Lipitor) 10 mg PO DAILY [facility] Last Admin: 12/31/17 08:52 Dose: 10 mg Enoxaparin Sodium (Lovenox) 40 mg SUBCUT DAILY [facility] Last Admin: 12/31/17 08:53 Dose: 40 mg Insulin Aspart (Novolog) 0 unit SUBCUT TIDAC [facility] PRN Reason: Protocol Last Admin: 12/31/17 09:00 Dose: 2 units Insulin Glargine (Lantus Solostar) 66 units SUBCUT BEDTIME [facility] Last Admin: 12/30/17 21:56 Dose: 66 units Lisinopril (Prinivil) 5 mg PO DAILY [facility] Last Admin: 12/31/17 08:52 Dose: 5 mg Magnesium Oxide (Magnesium Oxide) 200 mg PO DAILY [facility] Last Admin: 12/31/17 08:52 Dose: 200 mg Meclizine HCl (Antivert) 50 mg PO Q6H PRN PRN Reason: Dizziness Nitroglycerin (Nitrostat) 0.4 mg SL Q5M PRN PRN Reason: Chest Pain Last Admin: 12/30/17 13:35 Dose: 0.4 mg Nitroglycerin (Nitro-Bid 2%) 0.5 gm TOP ONETIME ONE Stop: 12/30/17 13:10 Last Admin: 12/30/17 13:41 Dose: 0.5 gm Tresiba Insulin (Degludec) 1 each SUBCUT BEDTIME [facility] Last Admin: 02/05/18 20:28 Dose: Not Given Sodium Chloride (Saline Flush) 10 ml FLUSH ASDIRECTED PRN PRN Reason: Keep Vein Open Sodium Chloride (Saline Flush) 2.5 ml FLUSH ASDIRECTED PRN PRN Reason: Keep Vein Open *Q Meaningful Use (DIS) - VTE *Q VTE Criteria *Q: - Stroke *Q Stroke Criteria *Q: - AMI *Q AMI Criteria *Q: - Free Text/Narrative Note: I have examined the patient. I have discussed findings and treatment plan with resident. I agree with the assessment and plan outlined in the following resident's note.
== END 2017-12-31 11:30 | disposition home or self-care (01) ==
LOC: MW.ED 12:20 → MW.MS 14:02
PROVIDERS: ADMIT Internal Medicine; ATTEND Internal Medicine
DX: R07.9 Chest pain, unspecified (principal); E78.5 Hyperlipidemia, unspecified; G43.909 Migraine, unspecified, not intractable, without status migrainosus; R60.0 Localized edema; J44.9 Chronic obstructive pulmonary disease, unspecified; K21.9 Gastro-esophageal reflux disease without esophagitis; H81.01 Meniere's disease, right ear; F41.9 Anxiety disorder, unspecified; E11.65 Type 2 diabetes mellitus with hyperglycemia; E66.9 Obesity, unspecified; Z68.37 Body mass index [BMI] 37.0-37.9, adult; Z86.010 Personal history of colon polyps; Z87.891 Personal history of nicotine dependence; Z79.4 Long term (current) use of insulin; Z79.899 Other long term (current) drug therapy; Z88.8 Allergy status to other drugs, medicaments and biological substances; Z98.52 Vasectomy status; Z98.890 Other specified postprocedural states
CPT/HCPCS: 36415; 71045; 80048; 80053; 82150; 82962; 83690; 84484; 85025; 85027; 85610; 93005; 96372; 99285; A9270; G0378; J1650; J1815; 99284

== ENCOUNTER 2019-11-26 10:13 | Emergency (ER) | payer OTHER ==
--- NOTE | 2019-11-26 10:22 | EDM.PDOC ---
ED HPI GENERAL MEDICAL PROBLEM - General Chief Complaint: General Stated Complaint: FLU Time Seen by Provider: 11/26/19 10:17 Source of Information: Reports: Patient History Limitations: Reports: No Limitations - History of Present Illness INITIAL COMMENTS - FREE TEXT/NARRATIVE: HISTORY AND PHYSICAL: History of present illness: Patient is a 53-year-old male who presents to the emergency room today with complaints of right ear pain, sore throat, subjective fever and generally feeling unwell. Patient states that his has had flulike symptoms and is concerned that he may have the flu. Patient states that his has had flulike symptoms and is concerned that he may have the flu. Patient denies any headache, change in vision, syncope or near syncope. Denies any chest pain, back pain, or shortness of breath. Denies any abdominal pain, nausea, vomiting, diarrhea, constipation or dysuria. Has not noted any blood in urine or stool. Patient has been eating and drinking appropriately. Review of systems: As per history of present illness and below otherwise all systems reviewed and negative. Past medical history: As per history of present illness and as reviewed below otherwise noncontributory. Surgical history: As per history of present illness and as reviewed below otherwise noncontributory. Social history: See social history for further information Family history: As per history of present illness and as reviewed below otherwise noncontributory. Physical exam: General: well-developed and well-nourished 53-year-old male. Alert and oriented. Nontoxic appearing and in no acute distress. HEENT: Atraumatic, normocephalic, pupils equal and reactive bilaterally, negative for conjunctival pallor or scleral icterus, mucous membranes moist, TMs normal bilaterally, throat erythematous without exudate (no pillar shifting) , neck supple, nontender, trachea midline. No drooling or trismus noted. No meningeal signs. No hot potato voice noted. Lungs: Clear to auscultation, breath sounds equal bilaterally, chest nontender. Heart: S1S2, regular rate and rhythm without overt murmur Abdomen: Soft, nondistended, nontender. Negative for masses or hepatosplenomegaly. Negative for costovertebral tenderness. Pelvis: Stable nontender. Skin: Intact, warm, dry. No lesions or rashes noted. Extremities: Atraumatic, moves all extremities per self without difficulty or deficits, negative for cords or calf pain. Neurovascular unremarkable. Neuro: Awake, alert, oriented. Cranial nerves II through XII unremarkable. Cerebellum unremarkable. Motor and sensory unremarkable throughout. Exam nonfocal. Notes: Negative strep and influenza. Due to patient's health history and exam, will treat with Augmentin. Medication and supportive care measures were reviewed and discussed. Voices understanding and is agreeable to plan of care. Denies any further questions or concerns at this time. Diagnostics: Influenza, strep Therapeutics: None Prescription: Augmentin Impression: Pharyngitis Plan: 1. Take your medication as directed. Good handwashing and contact precautions as we discussed. 2. Warm Salt water gargles (rinse and spit) 3-4 x daily. Please get a new tooth brush after completion of your medication 3. Tylenol and or ibuprofen as needed for pain management. 4. Follow-up with your primary care provider in the next 1-2 days. Return to the ED as needed and as discussed. Definitive disposition and diagnosis as appropriate pending reevaluation and review of above. Throat Pain Score (Numeric/FACES): 3 - Related Data Allergies Allergy/AdvReac Type Severity Reaction Status Date / Time glimepiride AdvReac Vomiting Verified 11/26/19 10:27 metformin AdvReac Vomiting Verified 11/26/19 10:27 Home Meds: Home Meds Albuterol [Proventil HFA] 2 puff INH Q4H PRN 07/11/16 [History] Lisinopril 5 mg PO DAILY 07/11/16 [History] Meclizine [Antivert] 50 mg PO Q6H PRN 07/11/16 [History] atorvaSTATin [Lipitor] 10 mg PO DAILY 07/11/16 [History] Magnesium Oxide 200 mg PO DAILY 04/16/17 [History] Naproxen 500 mg PO Q12HR PRN 04/16/17 [History] Gabapentin [Neurontin] 300 mg PO BEDTIME 12/30/17 [History] Insulin Aspart [Novolog Flexpen] 20 - 25 units SQ TIDAC 12/30/17 [History] Amoxicillin/Clavulanate K [Augmentin 875-125 MG] 1 tab PO BID 10 Days #20 tablet 11/26/19 [Rx] Insulin Glargine,Hum.Rec.Anlog [Basaglar Kwikpen U-100] 120 unit SQ BEDTIME 01/14 [History] Past Medical History - Past Health History Medical/Surgical History: Denies Medical/Surgical History HEENT History: Reports: Impaired Vision, Other (See Below) Other HEENT History: eustachian tube dysfunction, R labryinthine reactive loss, wears glasses Cardiovascular History: Reports: High Cholesterol, Hypertension Respiratory History: Reports: COPD Other Respiratory History: a doctor informed him to see a doctor for copd , states was given an albuterol inhaler, but has not used it onlly a couple times in 6 months. Gastrointestinal History: Reports: Colon Polyp, Diverticulosis, GERD Genitourinary History: Reports: Other (See Below) Other Genitourinary History: microalbuminuria, urgency CONVEYOR ATTENDANT History: Reports: None Musculoskeletal History: Reports: Other (See Below) Other Musculoskeletal History: L foot pain, joint pain, wrist/hand pain Neurological History: Reports: Migraines, Vertigo, Other (See Below) Other Neuro History: dizziness Psychiatric History: Reports: None, Anxiety Endocrine/Metabolic History: Reports: Diabetes, Type II Hematologic History: Reports: None Immunologic History: Reports: None Oncologic (Cancer) History: Reports: None Dermatologic History: Reports: None - Infectious Disease History Infectious Disease History: Reports: Chicken Pox - Past Surgical History Head Surgeries/Procedures: Reports: None GI Surgical History: Reports: Colonoscopy Other GI Surgeries/Procedures: polyp removed Male Surgical History: Reports: Vasectomy Other Male Surgeries/Procedures: vasectomy (1995) Musculoskeletal Surgical History: Reports: Other (See Below) Other Musculoskeletal Surgeries/Procedures:: left hand surgery Social & Family History - Family History Family Medical History: Noncontributory - Caffeine Use Caffeine Use: Reports: None ED ROS GENERAL - Review of Systems Review Of Systems: Comprehensive ROS is negative, except as noted in HPI. ED EXAM, GENERAL - Physical Exam Exam: See Below (See dictation) Course - Vital Signs Last Recorded V/S: Last Vital Signs Temp 98.2 F 11/26/19 10:23 Pulse 97 11/26/19 10:23 Resp 18 11/26/19 10:23 BP 150/100 H 11/26/19 10:23 Pulse Ox 97 11/26/19 10:23 - Orders/Labs/Meds Orders: Active Orders 24 hr Category Date Time Status CULTURE STREP A CONFIRMATION [RM] Stat Lab 11/26/19 10:46 Results STREP SCRN A RAPID W CULT CONF [RM] Stat Lab 11/26/19 10:46 Results Departure - Departure Time of Disposition: 11:22 Disposition: Home, Self-Care 01 Clinical Impression: Pharyngitis Qualifiers: Pharyngitis/tonsillitis etiology: unspecified etiology Qualified Code(s): J02.9 - Acute pharyngitis, unspecified - Discharge Information Prescriptions: Amoxicillin/Clavulanate K [Augmentin 875-125 MG] 1 tab PO BID 10 Days #20 tablet Instructions: Pharyngitis, [id number] Referrals: Mario White MD [Primary Care Provider] - Forms: ED Department Discharge Additional Instructions: The following information is given to patients seen in the emergency department who are being discharged to home. This information is to outline your options for follow-up care. We provide all patients seen in our emergency department with a follow-up referral. The need for follow-up, as well as the timing and circumstances, are variable depending upon the specifics of your emergency department visit. If you don't have a primary care physician on staff, we will provide you with a referral. We always advise you to contact your personal physician following an emergency department visit to inform them of the circumstance of the visit and for follow-up with them and/or the need for any referrals to a consulting specialist. The emergency department will also refer you to a specialist when appropriate. This referral assures that you have the opportunity for follow-up care with a specialist. All of these measure are taken in an effort to provide you with optimal care, which includes your follow-up. Under all circumstances we always encourage you to contact your private physician who remains a resource for coordinating your care. When calling for follow-up care, please make the office aware that this follow-up is from your recent emergency room visit. If for any reason you are refused follow-up, please contact the [facility] Emergency Department at and asked to speak to the emergency department charge nurse. [facility] [address] [place] [id number] [facility] [address] [place] [id number] 1. Take your medication as directed. Good handwashing and contact precautions as we discussed. 2. Warm Salt water gargles (rinse and spit) 3-4 x daily. Please get a new tooth brush after completion of your medication 3. Tylenol and or ibuprofen as needed for pain management. 4. Follow-up with your primary care provider in the next 1-2 days. Return to the ED as needed and as discussed. Sepsis Event Note - Focused Exam Vital Signs: Vital Signs Temp Pulse Resp BP Pulse Ox 11/26/19 10:23 98.2 F 97 18 150/100 H 97 Date Exam was Performed: 11/26/19 Time Exam was Performed: 11:22 - My Orders Last 24 Hours: My Active Orders 11/26/19 10:46 CULTURE STREP A CONFIRMATION [RM] Stat STREP SCRN A RAPID W CULT CONF [RM] Stat - Assessment/Plan Last 24 Hours: My Active Orders 11/26/19 10:46 CULTURE STREP A CONFIRMATION [RM] Stat STREP SCRN A RAPID W CULT CONF [RM] Stat
[2019-11-26 10:27] VITALS: BP 150/100; PULSE 97
== END 2019-11-26 11:30 | disposition home or self-care (01) ==
LOC: MW.ED 10:13
DX: J02.9 Acute pharyngitis, unspecified (principal); E11.9 Type 2 diabetes mellitus without complications; Z88.8 Allergy status to other drugs, medicaments and biological substances; Z79.899 Other long term (current) drug therapy; Z79.4 Long term (current) use of insulin
CPT/HCPCS: 87081; 87804; 87880-QW; 99283

== ENCOUNTER 2020-06-03 11:55 | Emergency (ER) | payer OTHER ==
[2020-06-03 12:05] VITALS: BP 179/114; PULSE 114
--- NOTE | 2020-06-03 12:07 | EDM.PDOC ---
ED HPI GENERAL MEDICAL PROBLEM - General Chief Complaint: Neuro Symptoms/Deficits Stated Complaint: NUMBNESS IN FACE Time Seen by Provider: 06/03/20 12:01 - History of Present Illness INITIAL COMMENTS - FREE TEXT/NARRATIVE: History of present illness: Patient presents with a 2-day history of left-sided cheek to ear pain and then some facial droop that began today he denies any fever chills cough or congestion there is not been any rash he denies any other symptoms of weakness in any other location otherwise she feels fine has a history of diabetes nothing seems to make it better or worse. Review of systems: As per history of present illness and below otherwise all systems reviewed and negative. Past medical history: As per history of present illness and as reviewed below otherwise noncontributory. Surgical history: As per history of present illness and as reviewed below otherwise noncontributory. Social history: No reported history of drug or alcohol abuse. Family history: As per history of present illness and as reviewed below otherwise noncontributory. Physical exam: HEENT: Atraumatic, normocephalic, pupils reactive, negative for conjunctival pallor or scleral icterus, mucous membranes moist, throat clear, neck supple, nontender, trachea midline. No rash or lesions on the face around the ear or in the external auditory canal. Lungs: Clear to auscultation, breath sounds equal bilaterally, chest nontender. Heart: S1S2, regular, negative for clicks, rubs, or JVD. Abdomen: Soft, nondistended, nontender. Negative for masses or hepatosplenomegaly. Negative for costovertebral tenderness. Pelvis: Stable nontender. Genitourinary: Deferred. Rectal: Deferred. Extremities: Atraumatic, negative for cords or calf pain. Neurovascular unremarkable. Neuro: Awake, alert, oriented. Cranial nerves II through XII unremarkable the exception of a paralysis of the left facial nerve. Forehead is not spared. Cerebellum unremarkable. Motor and sensory unremarkable throughout. Exam nonfocal. No pronator drift Diagnostics: [] Therapeutics: [] Impression: [] Plan: [] Definitive disposition and diagnosis as appropriate pending reevaluation and review of above. - Related Data Allergies Allergy/AdvReac Type Severity Reaction Status Date / Time glimepiride AdvReac Vomiting Verified 06/03/20 12:00 metformin AdvReac Vomiting Verified 06/03/20 12:00 Home Meds: Home Meds Albuterol [Proventil HFA] 2 puff INH Q4H PRN 07/11/16 [History] Lisinopril 5 mg PO DAILY 07/11/16 [History] Meclizine [Antivert] 50 mg PO Q6H PRN 07/11/16 [History] atorvaSTATin [Lipitor] 10 mg PO DAILY 07/11/16 [History] Magnesium Oxide 200 mg PO DAILY 04/16/17 [History] Naproxen 500 mg PO Q12HR PRN 04/16/17 [History] Gabapentin [Neurontin] 300 mg PO BEDTIME 12/30/17 [History] Insulin Aspart [Novolog Flexpen] 20 - 25 units SQ TIDAC 12/30/17 [History] Amoxicillin/Clavulanate K [Augmentin 875-125 MG] 1 tab PO BID 10 Days #20 tablet 11/26/19 [Rx] Insulin Glargine,Hum.Rec.Anlog [Basaglar Kwikpen U-100] 120 unit SQ BEDTIME 11/26/19 [History] Acyclovir 800 mg PO 5XDAY #50 tablet 06/03/20 [Rx] Carboxymethylcellulose Sodium [Artificial Tears] 15 ml OP 6XDAY #1 bottle 06/03/20 [Rx] predniSONE 60 mg PO WITHBREAKFAST 5 Days #15 tab 06/03/20 [Rx] Past Medical History - Past Health History Medical/Surgical History: Denies Medical/Surgical History HEENT History: Reports: Impaired Vision, Other (See Below) Other HEENT History: eustachian tube dysfunction, R labryinthine reactive loss, wears glasses Cardiovascular History: Reports: High Cholesterol, Hypertension Respiratory History: Reports: COPD Other Respiratory History: a doctor informed him to see a doctor for copd , states was given an albuterol inhaler, but has not used it onlly a couple times in 6 months. 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: Reports: None Musculoskeletal History: Reports: Other (See Below) Other Musculoskeletal History: L foot pain, joint pain, wrist/hand pain Neurological History: Reports: Migraines, Vertigo, Other (See Below) Other Neuro History: dizziness Psychiatric History: Reports: None, Anxiety Endocrine/Metabolic History: Reports: Diabetes, Type II Hematologic History: Reports: None Immunologic History: Reports: None Oncologic (Cancer) History: Reports: None Dermatologic History: Reports: None - Infectious Disease History Infectious Disease History: Reports: Chicken Pox - Past Surgical History Head Surgeries/Procedures: Reports: None GI Surgical History: Reports: Colonoscopy Other GI Surgeries/Procedures: polyp removed Male Surgical History: Reports: Vasectomy Other Male Surgeries/Procedures: vasectomy (1995) Musculoskeletal Surgical History: Reports: Other (See Below) Other Musculoskeletal Surgeries/Procedures:: left hand surgery Social & Family History - Family History Family Medical History: Noncontributory - Caffeine Use Caffeine Use: Reports: None ED ROS GENERAL - Review of Systems Review Of Systems: See Below ED EXAM, GENERAL - Physical Exam Exam: See Below Course - Vital Signs Text/Narrative:: Patient has Marcelo's palsy will be treated with prednisone and acyclovir and artificial tears follow-up with primary care as directed today. Departure - Departure Time of Disposition: 12:02 Disposition: DC/Tfer to Hospice - Home 50 Condition: Good Clinical Impression: Marcelo's palsy - Discharge Information *PRESCRIPTION DRUG MONITORING PROGRAM REVIEWED*: Not Applicable *COPY OF PRESCRIPTION DRUG MONITORING REPORT IN PATIENT [place]: Not Applicable Instructions: Marcelo Palsy, Adult Referrals: Mario White MD [Primary Care Provider] - Additional Instructions: The following information is given to patients seen in the emergency department who are being discharged to home. This information is to outline your options for follow-up care. We provide all patients seen in our emergency department with a follow-up referral. The need for follow-up, as well as the timing and circumstances, are variable depending upon the specifics of your emergency department visit. If you don't have a primary care physician on staff, we will provide you with a referral. We always advise you to contact your personal physician following an emergency department visit to inform them of the circumstance of the visit and for follow-up with them and/or the need for any referrals to a consulting specialist. The emergency department will also refer you to a specialist when appropriate. This referral assures that you have the opportunity for follow-up care with a specialist. All of these measure are taken in an effort to provide you with optimal care, which includes your follow-up. Under all circumstances we always encourage you to contact your private physician who remains a resource for coordinating your care. When calling for follow-up care, please make the office aware that this follow-up is from your recent emergency room visit. If for any reason you are refused follow-up, please contact the [facility] Emergency Department at and asked to speak to the emergency department charge nurse.
== END 2020-06-03 12:18 | disposition home or self-care (01) ==
LOC: MW.ED 11:55
DX: G51.0 Bell's palsy (principal); E78.00 Pure hypercholesterolemia, unspecified; I10 Essential (primary) hypertension; J44.9 Chronic obstructive pulmonary disease, unspecified; K21.9 Gastro-esophageal reflux disease without esophagitis; E11.9 Type 2 diabetes mellitus without complications; Z88.8 Allergy status to other drugs, medicaments and biological substances; Z79.899 Other long term (current) drug therapy; Z79.4 Long term (current) use of insulin
CPT/HCPCS: 99283

== ENCOUNTER 2022-02-05 06:57 | Emergency (ER) | payer BC ==
[2022-02-05 07:13] VITALS: BP 151/107; PULSE 104
[2022-02-05] MEDS ORDERED: Ketorolac 30 MG/ML SDV IVPUSH ONE (07:25)
[2022-02-05] MEDS ORDERED: Morphine 4 MG/ML VIAL IVPUSH ONE (07:25)
[2022-02-05] MEDS ORDERED: Ondansetron 4 MG/2 ML SDV IVPUSH ONE (07:25)
[2022-02-05] MEDS ORDERED: Sodium Chloride 0.9% 1,000 ML IV ONE (07:25)
[2022-02-05 08:28] LABS: BLOOD UREA NITROGEN,BUN 9 mg/dL (7.0-18.0); CARBON DIOXIDE,CO2 28.2 mmol/L (21.0-32.0); CHLORIDE,CL 100 mmol/L (98-107); ESTIMATED GFR > 60.0 ml/min; GLUCOSE RANDOM 153 mg/dL (74-106); POTASSIUM,K 3.9 mmol/L (3.5-5.1); SODIUM,NA 139 mmol/L (136-148)
[2022-02-05] MEDS ORDERED: Acetaminophen/oxyCODONE 325-5 MG Tab PO ONE (10:26)
== END 2022-02-05 10:53 | disposition home or self-care (01) ==
LOC: MW.ED 06:57
DX: N20.2 Calculus of kidney with calculus of ureter (principal); E11.9 Type 2 diabetes mellitus without complications; I10 Essential (primary) hypertension; J44.9 Chronic obstructive pulmonary disease, unspecified; F41.9 Anxiety disorder, unspecified; E66.9 Obesity, unspecified; Z68.38 Body mass index [BMI] 38.0-38.9, adult; Z79.899 Other long term (current) drug therapy; Z88.8 Allergy status to other drugs, medicaments and biological substances; Z79.4 Long term (current) use of insulin
CPT/HCPCS: 36415; 74176; 80053; 81001; 83735; 85025; 96374; 96375; 99284; A9270; J1885; J2270; J2405; J7030

== ENCOUNTER 2025-02-15 12:09 | Emergency (ER) | payer BC ==
[2025-02-15] MEDS ORDERED: Sodium Chloride 0.9% 10 ML Syringe FLUSH PRN (12:12)
[2025-02-15] MEDS ORDERED: Sodium Chloride 0.9% 2.5 ML Syringe FLUSH PRN (12:12)
[2025-02-15] MEDS: Sodium Chloride 0.9% 1,000 ML IV ONE (12:25)
[2025-02-15 12:59] LABS: BASOPHILS ABSOLUTE AUTO 0.06 K/uL (0.00-0.20); BASOPHILS PERCENT AUTO 0.3 % (0.0-1.0); HEMATOCRIT 40.6 % (42.0-52.0); HEMOGLOBIN 13.7 g/dL (14.0-18.0); IMMATURE GRAN PERCENT AUTO 1.4 % (0.0-0.4); LYMPHOCYTES ABSOLUTE AUTO 0.73 K/uL (1.00-4.80); LYMPHOCYTES PERCENT AUTO 3.5 % (24.0-44.0); MEAN CORPUSCULAR HEMOGLOBIN 34.1 pg (28.0-32.0); MEAN CORPUSCULAR HGB CONC 33.7 g/dL (32.0-36.0); MEAN PLATELET VOLUME 11.8 fL (9.4-12.4); MONOCYTES ABSOLUTE AUTO 2.18 K/uL (0.00-0.80); MONOCYTES PERCENT AUTO 10.5 % (0.0-8.0); NEUTROPHILS ABSOLUTE AUTO 17.51 K/uL (1.80-7.70); NEUTROPHILS PERCENT AUTO 84.3 % (41.0-71.0); PLATELET COUNT,PLT 236 K/uL (150-400); RED BLOOD CELL COUNT 4.02 M/uL (4.52-5.90); WHITE BLOOD CELL COUNT,WBC 20.78 K/uL (3.9-11.3)
[2025-02-15] MEDS: Sodium Chloride 0.9% 1,000 ML IV STA (13:14)
[2025-02-15 13:15] LABS: APPEARANCE,URINE CLEAR; COLOR,URINE YELLOW; GLUCOSE,URINE >=1000 mg/dL (NEGATIVE); KETONES,URINE 15 mg/dL (NEGATIVE); LEUKOCYTE ESTERASE,URINE NEGATIVE (NEGATIVE); NITRITE,URINE NEGATIVE (NEGATIVE); OCCULT BLOOD,URINE NEGATIVE (NEGATIVE); PH,URINE 5.5 (5.0-8.0); PROTEIN,URINE NEGATIVE (NEGATIVE); UROBILINOGEN,URINE 0.2 EU/dL (<2.0)
[2025-02-15 13:16] LABS: BILIRUBIN,URINE SMALL (NEGATIVE)
[2025-02-15] MEDS: Cefepime 2 GM in Sodium Chloride 0.9% 50 ML IV ONE (13:25)
[2025-02-15 13:32] LABS: LACTIC ACID 3.5 mmol/L (0.4-2.0)
[2025-02-15 13:36] LABS: INR 1.1 (0.86-1.11)
[2025-02-15 13:46] LABS: AMPHETAMINES SCREEN, URINE NEGATIVE (CUTOFF=500); BARBITURATE SCREEN,URINE NEGATIVE (CUTOFF=200); BENZODIAZEPINES SCREEN,URINE NEGATIVE (CUTOFF=150); BUPRENORPHINE SCREEN,URINE NEGATIVE (CUTOFF=10); METHADONE SCREEN, URINE NEGATIVE (CUTOFF=200); METHAMPHETAMINES SCREEN, URINE NEGATIVE (CUTOFF=500); OXYCODONE SCREEN,URINE NEGATIVE (CUT0FF=100); PCP SCREEN,URINE NEGATIVE (CUTOFF=25); THC SCREEN,URINE 20 NG/ML NEGATIVE (CUTOFF=50)
[2025-02-15] MEDS: Norepinephrine Bit/D5W Premix 250 ML IV SCH ×2 (13:50→19:27)
[2025-02-15 13:56] LABS: BACTERIA,URINE RARE (NEGATIVE); EPITHELIAL CELLS,URINE RARE (NONE-FEW); HYALINE CASTS,URINE 0-1 (0-2/LPF); RBC,URINE 0-2 (0-2/HPF); WBC,URINE 0-1 (0-5/HPF)
[2025-02-15 13:56] LABS: A/G RATIO 0.8 (0.9-1.6); ALANINE AMINOTRANSFERASE,ALT 26 IU/L (14-63); ALKALINE PHOSPHATASE 89 U/L (46-116); ASPARTATE AMNIOTRANSFERASE,AST 12 IU/L (15-37); BILIRUBIN TOTAL 0.9 mg/dL (0.2-1.0); BLOOD UREA NITROGEN,BUN 74 mg/dL (7.0-18.0); CALCIUM 9.1 mg/dL (8.5-10.1); CHLORIDE,CL 84 mmol/L (98-107); ETHANOL BLOOD MEDICAL 5 mg/dL; MAGNESIUM 2.3 mg/dL (1.8-2.4); POTASSIUM,K 4.6 mmol/L (3.5-5.1); PRO B-TYPE NATRIUR PEPT,BNPPRO 237 pg/mL (0-125); PROTEIN TOTAL,TP 6.8 g/dL (6.4-8.2); SODIUM,NA 126 mmol/L (136-148)
[2025-02-15 13:59] LABS: BASE EXCESS ARTERIAL -19.9 (-2.0-3.0); BICARBONATE,ARTERIAL 5 mEq/L (21-28); PCO2 ARTERIAL 13 mmHG (35-45); PO2 ARTERIAL 114 mmHG (83-108)
[2025-02-15 13:59] LABS: ESTIMATED GFR 10 mL/min (>60)
[2025-02-15 14:09] LABS: GLUCOSE RANDOM 1371 mg/dL (74-106)
[2025-02-15] MEDS ORDERED: 50% Dextrose in Water 50 ML Syringe IVPUSH PRN (14:11)
[2025-02-15] MEDS ORDERED: Glucagon,Human Recombinant 1 MG Vial IM PRN (14:11)
[2025-02-15] MEDS: Lactated Ringers 1,000 ML IV ONE (14:15)
[2025-02-15] MEDS: LORazepam 2 MG/ML SDV IVPUSH ONE (14:15)
[2025-02-15] MEDS: Insulin Regular in 0.9 % NACL 100 ML IV SCH (14:19)
[2025-02-15] MEDS: Insulin Regular, Human 100 Units/ML 10 ML Vial IVPUSH ONE (14:20)
[2025-02-15 14:40] LABS: LIPASE 925 U/L (16-77)
[2025-02-15] MEDS: LORazepam 2 MG/ML SDV ONE (15:45)
[2025-02-15 15:49] LABS: A/G RATIO 0.8 (0.9-1.6); ALANINE AMINOTRANSFERASE,ALT 22 IU/L (14-63); ALBUMIN 3.1 g/dL (3.4-5.0); ALKALINE PHOSPHATASE 97 U/L (46-116); ASPARTATE AMNIOTRANSFERASE,AST 7 IU/L (15-37); BLOOD UREA NITROGEN,BUN 79 mg/dL (7.0-18.0); CALCIUM 9.2 mg/dL (8.5-10.1); CARBON DIOXIDE,CO2 9.2 mmol/L (21.0-32.0); CHLORIDE,CL 86 mmol/L (98-107); CREATININE 6.5 mg/dL (0.8-1.3); POTASSIUM,K 4.6 mmol/L (3.5-5.1); PROTEIN TOTAL,TP 7.2 g/dL (6.4-8.2); SODIUM,NA 125 mmol/L (136-148)
[2025-02-15 16:20] LABS: ESTIMATED GFR 9 mL/min (>60); GLUCOSE RANDOM 1300 mg/dL (74-106)
[2025-02-15 16:28] LABS: CORONAVIRUS COVID-19 NAA NEGATIVE (NEGATIVE); INFLUENZA A NAA NEGATIVE (NEGATIVE); INFLUENZA B NAA NEGATIVE (NEGATIVE); RESPIRATORY SYNCYTIAL VIR NAA NEGATIVE (NEGATIVE)
[2025-02-15 18:08] VITALS: BP 100/57; PULSE 124
[2025-02-15 18:33] LABS: A/G RATIO 0.8 (0.9-1.6); ALANINE AMINOTRANSFERASE,ALT 28 IU/L (14-63); ALBUMIN 3.1 g/dL (3.4-5.0); ALKALINE PHOSPHATASE 93 U/L (46-116); ASPARTATE AMNIOTRANSFERASE,AST 13 IU/L (15-37); BILIRUBIN TOTAL 0.9 mg/dL (0.2-1.0); BLOOD UREA NITROGEN,BUN 78 mg/dL (7.0-18.0); CALCIUM 9.7 mg/dL (8.5-10.1); CARBON DIOXIDE,CO2 13.7 mmol/L (21.0-32.0); CHLORIDE,CL 90 mmol/L (98-107); POTASSIUM,K 4.1 mmol/L (3.5-5.1); PROTEIN TOTAL,TP 7.2 g/dL (6.4-8.2); SODIUM,NA 130 mmol/L (136-148)
[2025-02-15 18:40] LABS: ESTIMATED GFR 10 mL/min (>60)
[2025-02-15 18:57] LABS: GLUCOSE RANDOM 984 mg/dL (74-106)
[2025-02-15] MEDS: propofoL 1,000 MG/100 ML 100 ML IV SCH ×2 (19:03→20:30)
[2025-02-15] MEDS: Ketamine 500 mg/10 ML MDV IV ONE (19:20)
[2025-02-15] MEDS: propofoL 1,000 MG/100 ML 100 ML ONE ×2 (19:26→20:45)
[2025-02-15] MEDS ORDERED: Succinylcholine 200 MG/10 ML MDV IVPUSH ONE (19:44)
[2025-02-15] MEDS: fentaNYL/Normal Saline 2,500 MCG in Premix Bag 1 BAG IV PRN (19:50)
[2025-02-15] MEDS: Ketamine 500 mg/10 ML MDV ONE (22:28)
== END 2025-02-15 20:30 ==
LOC: MW.ED 12:09
DX: E11.10 Type 2 diabetes mellitus with ketoacidosis without coma (principal); K85.90 Acute pancreatitis without necrosis or infection, unspecified; R57.9 Shock, unspecified; N17.9 Acute kidney failure, unspecified; I10 Essential (primary) hypertension; E78.00 Pure hypercholesterolemia, unspecified; J44.9 Chronic obstructive pulmonary disease, unspecified; Z79.899 Other long term (current) drug therapy; Z79.84 Long term (current) use of oral hypoglycemic drugs; Z79.4 Long term (current) use of insulin
CPT/HCPCS: 0241U; 31500; 36415; 36556; 36600; 51702; 70450; 71045; 71250; 72125; 74176; 80053; 80305; 80307; 81001; 82009; 82803; 82947; 83605; 83690; 83735; 83880; 84484; 85025; 85610; 87040; 93005; 96361; 96365; 96366; 96367; 96368; 96375; 99291; 99292; J0330; J0692; J1815; J2060; J2704; J3360; J3490; J7030; J7120; 93010; 99285; A9270-GY